=== PATIENT | male | born 1980 | race Caucasian/White ===

== ENCOUNTER 2017-03-31 20:00 | Emergency (ER) | payer SELFPAY ==
[~2017-03-31] VITALS: Ht 180.3 cm; Wt 67.5 kg
[2017-03-31 20:03] VITALS: Ht 180.3 cm; Wt 67.5 kg
[2017-03-31] MEDS ORDERED: DOCU-144 PO (21:00)
--- NOTE | 2017-03-31 21:06 | ERD ---
ER Documentation Chief Complaint Date/Time DATE: 03/31/17 TIME: 21:02 Chief Complaint Bump on the right groin area noticed yesterday HPI 36-year-old male presents here in emergency department for complaints of a bump in the right groin area that he noticed yesterday. Patient does not have any pain. Patient denies any constipation, patient has normal bowel movements. Patient does not have any hematuria. Patient does not have any hematochezia. Patient denies any vomiting. ROS All systems reviewed and are negative except as per history of present illness. Medications Home Meds Active Scripts Docusate Sodium* (Colace*) 100 Mg Capsule, 100 MG PO TID Y for CONSTIPATION, # 30 CAP Prov:SAUL DUARTE NP 03/31/17 Allergies Allergies: Coded Allergies: No Known Allergy (Unverified , 03/31/17) PMhx/Soc History of Surgery: No Anesthesia Reaction: No Hx Neurological Disorder: No Hx Respiratory Disorders: No Hx Cardiac Disorders: No Hx Psychiatric Problems: No Hx Miscellaneous Medical Probl: No Hx Alcohol Use: No Hx Substance Use: No Hx Tobacco Use: Yes Smoking Status: Heavy tobacco smoker FmHx Family History: No coronary disease, No diabetes, No other Physical Exam Vitals Vital Signs Date Time Temp Pulse Resp B/P Pulse Ox O2 Delivery O2 Flow Rate FiO2 03/31/17 20:03 98.1 61 18 113/62 98 Physical Exam GENERAL: The patient is well developed and appropriate for usual state of health, in no apparent distress. CHEST: Clear to auscultation bilaterally. There are no rales, wheezes or rhonchi. HEART: Regular rate and rhythm. No murmurs, clicks, rubs or gallops. No S3 or S4. ABDOMEN: Soft, nontender and nondistended. Good bowel sounds. No rebound or guarding. No gross peritonitis. No gross organomegaly or masses. No Baptiste sign or McBurney point tenderness. Noted palpable and reducible right inguinal hernia. Nontender. BACK: No midline or flank tenderness. EXTREMITIES: Equal pulses bilaterally. There is no peripheral clubbing, cyanosis or edema. No focal swelling or erythema. Full range of motion. Grossly neurovascularly intact. NEURO: Alert and oriented. Cranial nerves 2-12 intact. Motor strength in all 4 extremities with 5/5 strength. Sensation grossly intact. Normal speech and gait. SKIN: There is no apparent rash or petechia. The skin is warm and dry. HEMATOLOGIC AND LYMPHATIC: There is no evidence of excessive bruising or lymphedema. No gross cervical, axillary, or inguinal lymphadenopathy. Procedures/MDM Medical Decision Making: Patient's bump on the right groin area of hernia, no symptoms of incarceration or obstruction at this time, no symptoms of abdominal emergencies, nontender. No necrosis noted. There is low suspicion for abdominal emergencies at this time. Patients abdominal exam is normal at this time. Patients radiology exam does not show any abdominal emergencies at this time. There is low suspicion for appendicitis, cholecystitis, abdominal aortic aneurysms or peritonitis at this time. There is low suspicion for sepsis. Patient appears well and is hemodynamically stable. Disposition: Home. Condition: Stable Prescription Colace Instructions: Patient is advised to take medications as prescribed. Patient is advised to rest, increase fluid intake and do brat diet for next 1-2 days and progress as tolerated. Patient is advised that if symptoms are worse, severe abdominal pain, uncontrolled vomiting, high fever, severe flank pain, worst signs and symptoms, to return to the emergency department immediately. Otherwise, patient can follow up with primary care doctor in 5-7 days. See outpatient surgeon for possible hernia repair. Departure Diagnosis: Primary Impression: Inguinal hernia Obstruction and gangrene presence: without obstruction or gangrene Laterality : unilateral Recurrence: not specified as recurrent Qualified Code: K40.90 - Unilateral inguinal hernia without obstruction or gangrene, recurrence not specified Condition: Stable Patient Instructions: Hernia (Inguinal, Ventral, Umbilical) Additional Instructions: see outpatient surgeon for hernia repair SAUL DUARTE NP Mar 31, 2017 21:05
== END 2017-03-31 21:07 | disposition home or self-care (01) ==
LOC: FTE 20:00
DX: K40.90 Unilateral inguinal hernia, without obstruction or gangrene, not specified as recurrent (principal); F17.210 Nicotine dependence, cigarettes, uncomplicated
CPT/HCPCS: 99283